=== PATIENT | female | born 1945 | race Hispanic/Latino ===

== ENCOUNTER → 2020-09-04 | Outpatient (CLI) | payer OTHER, MEDICARE ==
[~2020-09-04] MED LIST: ACET-2893 PO; ATEN25TA PO; CEPH500B PO; ESOM40CA PO; MECL-160 PO; SIMV40TA59 PO
== END | disposition home or self-care (01) ==
LOC: RAH 08:36
PROVIDERS: ATTEND Internal Medicine Gastroenterology
DX: K76.0 Fatty (change of) liver, not elsewhere classified (principal); R63.4 Abnormal weight loss; Z90.49 Acquired absence of other specified parts of digestive tract
CPT/HCPCS: 76700

== ENCOUNTER → 2020-09-12 | Outpatient (CLI) | payer OTHER, MEDICARE ==
[2020-09-12 12:40] LABS: BASOPHILS % (AUTO) 0.3 % (0.0-5.0); EOSINOPHILS % (AUTO) 1.6 % (0.0-8.0); HEMATOCRIT 41.1 % (36-48); LYMPHOCYTES % (AUTO) 41.3 % (21.0-51.0); MEAN CORPUSCULAR HEMOGLOBIN 32.9 pg (27.0-33.0); MEAN CORPUSCULAR HGB CONC 33.6 g/dL (32.0-36.0); MEAN CORPUSCULAR VOLUME 97.9 fL (79-99); MONOCYTES % (AUTO) 16.5 % (3.0-13.0); PLATELET COUNT (AUTO) 154 K/uL (130-400); RED CELL DISTRIBUTION WIDTH 12.5 % (11.0-15.5); WHITE BLOOD COUNT (AUTO) 3.1 K/uL (4.8-10.8)
[2020-09-12 12:56] LABS: ALBUMIN 3.3 g/dL (3.5-5.0); BILIRUBIN,TOTAL 0.2 mg/dL (0.2-1.0); CREATININE 0.7 mg/dL (0.5-1.5); POTASSIUM 4.8 mmol/L (3.5-5.1); TOTAL PROTEIN, SERUM 7.2 g/dL (6.0-8.3)
== END | disposition home or self-care (01) ==
LOC: LAB 11:59
PROVIDERS: ATTEND Internal Medicine Gastroenterology
DX: K76.0 Fatty (change of) liver, not elsewhere classified (principal); R63.4 Abnormal weight loss
CPT/HCPCS: 36415; 80053; 85025

== ENCOUNTER 2022-10-24 08:15 | Inpatient (IN) | payer OTHER, MEDICARE ==
[~2022-10-24] VITALS: Ht 157.5 cm; Wt 55.3 kg
[~2022-10-24 08:15] MED LIST changes: -ACET-2893 PO; +ASPI-1005 PO; +ATOR40TA69 PO; -CEPH500B PO; -ESOM40CA PO; +LEVO25CA4 PO; -MECL-160 PO; +OMEP40CA21 PO; -SIMV40TA59 PO
[2022-10-24 08:40] LABS: BASOPHILS % (AUTO) 0.4 % (0.0-5.0); EOSINOPHILS % (AUTO) 2.2 % (0.0-8.0); HEMATOCRIT 40.4 % (36-48); LYMPHOCYTES % (AUTO) 27.1 % (21.0-51.0); MEAN CORPUSCULAR HEMOGLOBIN 32.1 pg (27.0-33.0); MEAN CORPUSCULAR HGB CONC 33.7 g/dL (32.0-36.0); MEAN CORPUSCULAR VOLUME 95.3 fL (79-99); MONOCYTES % (AUTO) 6.8 % (3.0-13.0); NEUTROPHILS % (AUTO) 62.5 % (40.0-77.0); PLATELET COUNT (AUTO) 269 K/uL (130-400); RED BLOOD CELL COUNT(AUTO) 4.24 MIL/uL (4.00-5.50); RED CELL DISTRIBUTION WIDTH 12.9 % (11.0-15.5); WHITE BLOOD COUNT (AUTO) 7.7 K/uL (4.8-10.8)
[2022-10-24 08:53] LABS: ALBUMIN 3.5 g/dL (3.5-5.0); CREATININE 0.8 mg/dL (0.5-1.5); POTASSIUM 3.5 mmol/L (3.5-5.1); TOTAL PROTEIN, SERUM 7.8 g/dL (6.0-8.3)
[2022-10-24 09:00] LABS: APPEARANCE,URINE CLEAR (CLEAR); BILIRUBIN,URINE NEGATIVE (NEGATIVE); COLOR,URINE YELLOW (YELLOW); GLUCOSE, URINE (UA) NEGATIVE (NEGATIVE); KETONES,URINE NEGATIVE (NEGATIVE); LEUKOCYTE ESTERASE ,URINE NEGATIVE Leu/uL (NEGATIVE); NITRATE,URINE NEGATIVE (NEGATIVE); OCCULT BLOOD,URINE NEGATIVE (NEGATIVE); PH,URINE 6.5 (5.0-8.0); PROTEIN,URINE NEGATIVE (NEGATIVE); UROBILINOGEN,URINE 0.2 mg/dL (0.2-1.0)
[2022-10-24] MEDS ORDERED: ACETAMINOPHEN 325 MG TAB PO PRN ×2 (11:30)
[2022-10-24] MEDS ORDERED: ONDANSETRON 4MG INJ IV PRN (11:30)
[2022-10-24] MEDS ORDERED: NITROGLYCERIN 0.4 MG SL TAB SL PRN (11:30)
[2022-10-24] MEDS ORDERED: ASPIRIN 81 MG EC TAB PO ONE (13:00)
[2022-10-24] MEDS ORDERED: CETI10CA5 PO (14:48)
[2022-10-24] MEDS ORDERED: LEVA15HF3 IH (14:48)
[2022-10-24] MEDS ORDERED: PRED20TA3 PO (14:48)
[2022-10-24 16:00] VITALS: BP 103/62
[2022-10-24] MEDS ORDERED: GI COCKTAIL PO ONE ×3 (20:00)
[2022-10-24] MEDS ORDERED: COMPOUND PO MISCELLANEOUS 1 EACH MISC MISC PRN (20:00)
[2022-10-24] MEDS ORDERED: PHARMACY COMMUNICATION MISC ONE (20:00)
[2022-10-24 20:01] VITALS: BP 111/73
[2022-10-24] MEDS: ATORVASTATIN 40 MG TABLET PO SCH (20:22)
[2022-10-24] MEDS: ATENOLOL 25 MG TABLET PO SCH (20:22)
[2022-10-24] MEDS: FAMOTIDINE 20MG VIAL IV SCH (20:22)
[2022-10-25] VITALS: BP 95/60
[2022-10-25 03:55] VITALS: BP 105/63
[2022-10-25 05:03] LABS: BASOPHILS % (AUTO) 0.3 % (0.0-5.0); EOSINOPHILS % (AUTO) 2.8 % (0.0-8.0); HEMATOCRIT 36.4 % (36-48); LYMPHOCYTES % (AUTO) 25.9 % (21.0-51.0); MEAN CORPUSCULAR HEMOGLOBIN 32.4 pg (27.0-33.0); MEAN CORPUSCULAR HGB CONC 34.3 g/dL (32.0-36.0); MEAN CORPUSCULAR VOLUME 94.3 fL (79-99); MONOCYTES % (AUTO) 6.6 % (3.0-13.0); NEUTROPHILS % (AUTO) 63.6 % (40.0-77.0); PLATELET COUNT (AUTO) 232 K/uL (130-400); RED BLOOD CELL COUNT(AUTO) 3.86 MIL/uL (4.00-5.50); RED CELL DISTRIBUTION WIDTH 12.8 % (11.0-15.5)
[2022-10-25 05:35] LABS: ALBUMIN 3.1 g/dL (3.5-5.0); CREATININE 0.7 mg/dL (0.5-1.5); POTASSIUM 4.1 mmol/L (3.5-5.1); TOTAL PROTEIN, SERUM 6.8 g/dL (6.0-8.3)
[2022-10-25 08:00] VITALS: BP 100/66
[2022-10-25] MEDS: FAMOTIDINE 20MG VIAL IV SCH (08:44)
[2022-10-25] MEDS: ASPIRIN 81 MG EC TAB PO SCH (08:45)
[2022-10-25] MEDS: ATENOLOL 25 MG TABLET PO SCH ×2 (08:45→21:07)
[2022-10-25] MEDS: ENOXAPARIN SODIUM 30 MG/0.3 ML SQ SCH (08:46)
[2022-10-25 12:00] VITALS: BP 104/70
[2022-10-25] MEDS ORDERED: IOHEXOL 350 MG/ML 100ML INFUS..BTL IV ONE (15:24)
[2022-10-25] MEDS: SUCRALFATE 1 GM TABLET PO SCH (16:59)
[2022-10-25] MEDS: PANTOPRAZOLE 40 MG/VIAL IVP SCH (16:59)
[2022-10-25 20:00] VITALS: BP 108/65
[2022-10-25] MEDS: ATORVASTATIN 40 MG TABLET PO SCH (21:07)
[2022-10-26] VITALS: BP 95/61
[2022-10-26 04:00] VITALS: BP 95/60
[2022-10-26 05:21] LABS: HEMATOCRIT 38.2 % (36-48); MEAN CORPUSCULAR HEMOGLOBIN 32.3 pg (27.0-33.0); MEAN CORPUSCULAR VOLUME 97.9 fL (79-99); RED BLOOD CELL COUNT(AUTO) 3.9 MIL/uL (4.00-5.50); RED CELL DISTRIBUTION WIDTH 12.9 % (11.0-15.5); WHITE BLOOD COUNT (AUTO) 7.5 K/uL (4.8-10.8)
[2022-10-26 05:40] LABS: POTASSIUM 3.8 mmol/L (3.5-5.1)
[2022-10-26 05:41] LABS: ALBUMIN 3.1 g/dL (3.5-5.0); CREATININE 0.7 mg/dL (0.5-1.5); TOTAL PROTEIN, SERUM 6.7 g/dL (6.0-8.3)
[2022-10-26] MEDS: SUCRALFATE 1 GM TABLET PO SCH (06:36)
[2022-10-26 07:30] VITALS: BP 104/71
[2022-10-26] MEDS: ASPIRIN 81 MG EC TAB PO SCH (08:39)
[2022-10-26] MEDS: PANTOPRAZOLE 40 MG/VIAL IVP SCH (08:39)
[2022-10-26] MEDS: ATENOLOL 25 MG TABLET PO SCH (08:40)
[2022-10-26] MEDS: ENOXAPARIN SODIUM 30 MG/0.3 ML SQ SCH (08:41)
[2022-10-26] MEDS ORDERED: PANT40TA PO (10:09)
[2022-10-26] MEDS ORDERED: SUCR1TAB28 PO (10:09)
[2022-10-26 11:30] VITALS: BP 116/67
== END 2022-10-26 18:00 | disposition home or self-care (01) | DRG 392 ==
LOC: EDH 08:15 → EDHIP 11:13 → OBSVTOIN 11:13 → 4AH 14:00
PROVIDERS: ADMIT Hospitalist; ATTEND Hospitalist
DX: K29.70 Gastritis, unspecified, without bleeding (principal); E78.5 Hyperlipidemia, unspecified; I10 Essential (primary) hypertension; K83.8 Other specified diseases of biliary tract; I25.2 Old myocardial infarction; Z79.82 Long term (current) use of aspirin; Z79.899 Other long term (current) drug therapy; Z82.49 Family history of ischemic heart disease and other diseases of the circulatory system; Z83.3 Family history of diabetes mellitus; Z90.49 Acquired absence of other specified parts of digestive tract; Z90.710 Acquired absence of both cervix and uterus; Z95.0 Presence of cardiac pacemaker
CPT/HCPCS: 36415; 74018; 74174; 76705; 80053; 81003; 82550; 83690; 83874; 84484; 85025; 85027; 93005; C9113; G0378; J1650; J2405; J3490; Q9967

== ENCOUNTER 2022-11-25 10:22 | Emergency (ER) | payer OTHER, MEDICARE ==
[~2022-11-25] VITALS: Ht 147.3 cm; Wt 55.3 kg
[~2022-11-25 10:22] MED LIST changes: +CETI10CA5 PO; +LEVA15HF3 IH; +PANT40TA PO; +PRED20TA3 PO; +SUCR1TAB28 PO
[2022-11-25 10:37] VITALS: BP 136/80
[2022-11-25] MEDS ORDERED: LIDOCAINE HCL 2% VISCOUS 15 ML UDCUP PO ONE (11:00)
[2022-11-25] MEDS ORDERED: MAG/ALUM/SIMETH 30 ML UDCUP PO ONE (11:00)
[2022-11-25] MEDS ORDERED: DICYCLOMINE HCL 10 MG/5 ML ML PO ONE ×2 (11:00→11:24)
[2022-11-25] MEDS ORDERED: MAG/ALUM/SIMETH 30 ML UDCUP ONE (11:24)
[2022-11-25 11:39] LABS: BASOPHILS % (AUTO) 0.3 % (0.0-5.0); EOSINOPHILS % (AUTO) 1.4 % (0.0-8.0); HEMATOCRIT 38.6 % (36-48); LYMPHOCYTES % (AUTO) 13.9 % (21.0-51.0); MEAN CORPUSCULAR HEMOGLOBIN 33.1 pg (27.0-33.0); MEAN CORPUSCULAR HGB CONC 34.2 g/dL (32.0-36.0); MEAN CORPUSCULAR VOLUME 96.7 fL (79-99); NEUTROPHILS % (AUTO) 77.6 % (40.0-77.0); PLATELET COUNT (AUTO) 207 K/uL (130-400); RED BLOOD CELL COUNT(AUTO) 3.99 MIL/uL (4.00-5.50); RED CELL DISTRIBUTION WIDTH 13.3 % (11.0-15.5); WHITE BLOOD COUNT (AUTO) 9.3 K/uL (4.8-10.8)
[2022-11-25 12:00] LABS: APPEARANCE,URINE CLEAR (CLEAR); BILIRUBIN,URINE NEGATIVE (NEGATIVE); COLOR,URINE COLORLESS (YELLOW); GLUCOSE, URINE (UA) NEGATIVE (NEGATIVE); KETONES,URINE NEGATIVE (NEGATIVE); LEUKOCYTE ESTERASE ,URINE NEGATIVE Leu/uL (NEGATIVE); NITRATE,URINE NEGATIVE (NEGATIVE); OCCULT BLOOD,URINE NEGATIVE (NEGATIVE); PROTEIN,URINE NEGATIVE (NEGATIVE); UROBILINOGEN,URINE 0.2 mg/dL (0.2-1.0)
[2022-11-25 12:34] LABS: CREATININE 0.7 mg/dL (0.5-1.5); POTASSIUM 3.8 mmol/L (3.5-5.1)
[2022-11-25 12:38] LABS: ALBUMIN 3.5 g/dL (3.5-5.0); TOTAL PROTEIN, SERUM 6.8 g/dL (6.0-8.3)
[2022-11-25] MEDS ORDERED: GICOCKTAIL PO (14:07)
== END 2022-11-25 14:19 | disposition home or self-care (01) ==
LOC: EDH 10:22
DX: K29.70 Gastritis, unspecified, without bleeding (principal); I10 Essential (primary) hypertension; Z79.899 Other long term (current) drug therapy; Z79.82 Long term (current) use of aspirin; Z90.49 Acquired absence of other specified parts of digestive tract; Z90.710 Acquired absence of both cervix and uterus
CPT/HCPCS: 36415; 80053; 81003; 83690; 85025; 93005

== ENCOUNTER 2023-05-26 09:39 | Inpatient (IN) | payer OTHER, MEDICARE ==
[~2023-05-26] VITALS: Ht 149.9 cm; Wt 54.0 kg
[~2023-05-26 09:39] MED LIST changes: +GICOCKTAIL PO
[2023-05-26 10:07] LABS: BASOPHILS # (AUTO) 0.02 K/uL (0.00-0.20); BASOPHILS % (AUTO) 0.2 % (0.0-5.0); EOSINOPHILS # (AUTO) 0.06 K/uL (0.00-0.70); EOSINOPHILS % (AUTO) 0.5 % (0.0-8.0); HEMATOCRIT 39.9 % (36-48); IMMATURE GRANULOCYTE ABSOLUTE 0.04 K/uL (0-1); LYMPHOCYTES # (AUTO) 1.3 K/uL (1.0-4.8); LYMPHOCYTES % (AUTO) 11.5 % (21.0-51.0); MEAN CORPUSCULAR HEMOGLOBIN 32.2 pg (27.0-33.0); MEAN CORPUSCULAR HGB CONC 33.1 g/dL (32.0-36.0); MEAN CORPUSCULAR VOLUME 97.3 fL (79-99); MONOCYTES # (AUTO) 0.5 K/uL (0.1-1.0); MONOCYTES % (AUTO) 4.4 % (3.0-13.0); NEUTROPHILS # (AUTO) 9.3 K/uL (1.8-7.7); PLATELET COUNT (AUTO) 164 K/uL (130-400); RED CELL DISTRIBUTION WIDTH 12.4 % (11.0-15.5); WHITE BLOOD COUNT (AUTO) 11.1 K/uL (4.8-10.8)
[2023-05-26 10:16] LABS: CREATININE 0.7 mg/dL (0.5-1.5); POTASSIUM 3.5 mmol/L (3.5-5.1)
[2023-05-26 10:25] LABS: ALBUMIN 3.8 g/dL (3.5-5.0); BILIRUBIN,TOTAL 0.3 mg/dL (0.2-1.0); TOTAL PROTEIN, SERUM 7.4 g/dL (6.0-8.3)
[2023-05-26 10:41] LABS: APPEARANCE,URINE CLEAR (CLEAR); BILIRUBIN,URINE NEGATIVE (NEGATIVE); COLOR,URINE LIGHT-YELLOW (YELLOW); GLUCOSE, URINE (UA) NEGATIVE (NEGATIVE); KETONES,URINE NEGATIVE (NEGATIVE); LEUKOCYTE ESTERASE ,URINE NEGATIVE Leu/uL (NEGATIVE); NITRATE,URINE NEGATIVE (NEGATIVE); OCCULT BLOOD,URINE NEGATIVE (NEGATIVE); PROTEIN,URINE NEGATIVE (NEGATIVE); UROBILINOGEN,URINE 0.2 mg/dL (0.2-1.0)
[2023-05-26 10:42] LABS: ADD UA MICROSCOPIC NO
[2023-05-26] MEDS ORDERED: METOCLOPRAMIDE 10 MG/2 ML VIAL IVP ONE (11:00)
[2023-05-26] MEDS ORDERED: LACTATED RINGERS 1000ML 1,000 ML IV ONE (11:00)
[2023-05-26] MEDS ORDERED: FAMOTIDINE 20MG VIAL IV ONE (11:00)
[2023-05-26] MEDS: MORPHINE 2 MG SYG IVP ONE ×2 (11:09→11:16)
[2023-05-26] MEDS ORDERED: IOHEXOL-350 75 ML VIAL IV ONE (12:08)
[2023-05-26] MEDS ORDERED: ASPIRIN 325MG TAB PO ONE (18:30)
[2023-05-26] MEDS ORDERED: ACETAMINOPHEN 325 MG TAB PO PRN ×2 (19:00)
[2023-05-26] MEDS ORDERED: MECLIZINE HCL 25 MG TABLET PO PRN (19:00)
[2023-05-26] MEDS ORDERED: LACTULOSE 20 GM/30 ML UDCUP PO PRN (19:00)
[2023-05-26] MEDS ORDERED: ONDANSETRON 4MG INJ IV PRN (19:00)
[2023-05-26] MEDS ORDERED: FAMOTIDINE 20MG TAB PO SCH (21:00)
[2023-05-26] MEDS: METOPROLOL TARTRATE 25 MG TAB PO SCH (22:15)
[2023-05-26 22:55] LABS: HEMOGLOBIN A1C 5.9 % (4.0-6.0)
[2023-05-26 23:11] LABS: CHOLESTEROL 119 mg/dL (<200); HDL CHOLESTEROL 48 mg/dL (35-85); LDL DIRECT 58 mg/dL (0-99); TRIGLYCERIDES 81 mg/dL (30-200)
[2023-05-27] MEDS: PANTOPRAZOLE 40 MG TAB DR PO SCH (09:18)
[2023-05-27] MEDS: METOPROLOL TARTRATE 25 MG TAB PO SCH ×2 (09:18→20:47)
[2023-05-27] MEDS ORDERED: CLOPIDOGREL 75MG TAB PO ONE (12:00)
[2023-05-27] MEDS: NITROGLYCERIN 1GM OINT 1 INCH/1GM TD SCH ×2 (13:29→20:00)
[2023-05-27] MEDS ORDERED: ATEN50TA PO (14:36)
[2023-05-27] MEDS: ENOXAPARIN SODIUM 60 MG/0.6 ML SQ SCH (20:39)
[2023-05-27] MEDS: ATORVASTATIN 40 MG TABLET PO SCH (20:39)
[2023-05-28] VITALS (9 sets, daily range): BP systolic 103–106; BP diastolic 63–76; PULSE 85–96; RESP 16–18; O2SAT 95–99
[2023-05-28] MEDS: NITROGLYCERIN 1GM OINT 1 INCH/1GM TD SCH ×3 (03:25→21:58)
[2023-05-28 06:02] LABS: BASOPHILS # (AUTO) 0.02 K/uL (0.00-0.20); BASOPHILS % (AUTO) 0.3 % (0.0-5.0); EOSINOPHILS # (AUTO) 0.15 K/uL (0.00-0.70); EOSINOPHILS % (AUTO) 2.2 % (0.0-8.0); HEMATOCRIT 36.8 % (36-48); IMMATURE GRANULOCYTE ABSOLUTE 0.04 K/uL (0-1); LYMPHOCYTES # (AUTO) 2.1 K/uL (1.0-4.8); LYMPHOCYTES % (AUTO) 31.5 % (21.0-51.0); MEAN CORPUSCULAR HEMOGLOBIN 32.4 pg (27.0-33.0); MEAN CORPUSCULAR HGB CONC 32.9 g/dL (32.0-36.0); MEAN CORPUSCULAR VOLUME 98.7 fL (79-99); MONOCYTES # (AUTO) 0.4 K/uL (0.1-1.0); MONOCYTES % (AUTO) 6.4 % (3.0-13.0); NEUTROPHILS # (AUTO) 3.9 K/uL (1.8-7.7); PLATELET COUNT (AUTO) 165 K/uL (130-400); RED BLOOD CELL COUNT(AUTO) 3.73 MIL/uL (4.00-5.50); RED CELL DISTRIBUTION WIDTH 12.4 % (11.0-15.5); WHITE BLOOD COUNT (AUTO) 6.7 K/uL (4.8-10.8)
[2023-05-28 06:33] LABS: CREATININE 0.7 mg/dL (0.5-1.5); MAGNESIUM 2.1 mg/dL (1.80-2.40); PHOSPHORUS 3.4 mg/dL (2.5-4.9); POTASSIUM 3.6 mmol/L (3.5-5.1)
[2023-05-28] MEDS ORDERED: LEVOTHYROXINE 25 MCG TABLET PO SCH (07:30)
[2023-05-28] MEDS: METOPROLOL TARTRATE 25 MG TAB PO SCH ×2 (09:09→21:58)
[2023-05-28] MEDS: PANTOPRAZOLE 40 MG TAB DR PO SCH (09:09)
[2023-05-28] MEDS: ASPIRIN 81MG CHEW TAB PO SCH (09:09)
[2023-05-28] MEDS: ENOXAPARIN SODIUM 60 MG/0.6 ML SQ SCH ×2 (09:09→21:58)
[2023-05-28] MEDS: CLOPIDOGREL 75MG TAB PO SCH (09:09)
[2023-05-28] MEDS: ATORVASTATIN 40 MG TABLET PO SCH (21:58)
[2023-05-29] VITALS (9 sets, daily range): BP systolic 88–120; BP diastolic 49–75; PULSE 80–95; RESP 16–18; O2SAT 96–100
[2023-05-29] MEDS: NITROGLYCERIN 1GM OINT 1 INCH/1GM TD SCH ×2 (04:00→12:00)
[2023-05-29] MEDS: LEVOTHYROXINE 25 MCG TABLET PO SCH (06:23)
[2023-05-29] MEDS: METOPROLOL TARTRATE 25 MG TAB PO SCH (08:42)
[2023-05-29] MEDS: PANTOPRAZOLE 40 MG TAB DR PO SCH (08:42)
[2023-05-29] MEDS: CLOPIDOGREL 75MG TAB PO SCH (08:42)
[2023-05-29] MEDS: ASPIRIN 81MG CHEW TAB PO SCH (08:42)
[2023-05-29] MEDS: ENOXAPARIN SODIUM 60 MG/0.6 ML SQ SCH ×2 (08:43→20:23)
[2023-05-29] MEDS: ATORVASTATIN 40 MG TABLET PO SCH (20:22)
[2023-05-30 03:50] VITALS: BP 106/66; PULSE 80; RESP 16
[2023-05-30] MEDS: LEVOTHYROXINE 25 MCG TABLET PO SCH (06:11)
[2023-05-30 08:00] VITALS: BP 119/72; PULSE 85; RESP 19; O2SAT 100
[2023-05-30] MEDS ORDERED: ATENOLOL 25 MG TABLET PO SCH (09:00)
[2023-05-30] MEDS ORDERED: METOPROLOL SUCCINATE 50 MG TAB.SR.24H PO SCH (09:00)
[2023-05-30] MEDS: PANTOPRAZOLE 40 MG TAB DR PO SCH (09:41)
[2023-05-30] MEDS: ASPIRIN 81MG CHEW TAB PO SCH (09:42)
[2023-05-30] MEDS: ENOXAPARIN SODIUM 60 MG/0.6 ML SQ SCH (09:44)
[2023-05-30 12:10] VITALS: BP 110/62; PULSE 80; RESP 18
== END 2023-05-30 17:30 | disposition home or self-care (01) | DRG 282 ==
LOC: EDH 09:39 → EDHIP 18:47 → 3DH 05-27 23:49
PROVIDERS: ADMIT Hospitalist; ATTEND Hospitalist
DX: I21.4 Non-ST elevation (NSTEMI) myocardial infarction (principal); I25.10 Atherosclerotic heart disease of native coronary artery without angina pectoris; K21.9 Gastro-esophageal reflux disease without esophagitis; E03.9 Hypothyroidism, unspecified; I10 Essential (primary) hypertension; E78.00 Pure hypercholesterolemia, unspecified; R55 Syncope and collapse; Z95.0 Presence of cardiac pacemaker; I25.2 Old myocardial infarction; Z90.710 Acquired absence of both cervix and uterus; Z79.899 Other long term (current) drug therapy; K44.9 Diaphragmatic hernia without obstruction or gangrene; K57.90 Diverticulosis of intestine, part unspecified, without perforation or abscess without bleeding
CPT/HCPCS: 36415; 71045; 74178; 80048; 80053; 80061; 81003; 82550; 83036; 83690; 83735; 83874; 84100; 84484; 85025; 93005; 93306; G0378; J1650; J2270; J2765; J3490; Q9967

== ENCOUNTER → 2023-10-07 | Outpatient (CLI) | payer OTHER, MEDICARE ==
[~2023-10-07] MED LIST changes: -ATEN25TA PO; +ATEN50TA PO; -LEVA15HF3 IH; -OMEP40CA21 PO; -PRED20TA3 PO; -SUCR1TAB28 PO
[2023-10-07 12:39] LABS: ALBUMIN 3.6 g/dL (3.5-5.0); BILIRUBIN,TOTAL 0.3 mg/dL (0.2-1.0); CREATININE 0.7 mg/dL (0.5-1.5); TOTAL PROTEIN, SERUM 7.4 g/dL (6.0-8.3)
== END | disposition home or self-care (01) ==
LOC: LAB 09:00
PROVIDERS: ATTEND Internal Medicine Cardiovascular Disease
DX: E78.2 Mixed hyperlipidemia (principal)
CPT/HCPCS: 36415; 80053; 80061

== ENCOUNTER → 2024-07-06 | Outpatient (CLI) | payer OTHER, MEDICARE | END | disposition home or self-care (01) | LOC: RAH 09:42 | PROVIDERS: ATTEND Family Medicine | DX: Z12.31 Encounter for screening mammogram for malignant neoplasm of breast (principal); R92.333 Mammographic heterogeneous density, bilateral breasts; R92.1 Mammographic calcification found on diagnostic imaging of breast | CPT/HCPCS: 77067 ==

== ENCOUNTER → 2024-10-01 | Outpatient (CLI) | payer OTHER, MEDICARE ==
--- NOTE | 2024-10-01 13:58 | HMCIMG ---
SHOULDER COMP 2+VWS RT REASON: SHHOULDER PAIN TECHNIQUE: 2 views were obtained. FINDINGS: There is no evidence of fracture or dislocation. There is no joint effusion. The soft tissues appear unremarkable. There is no evidence of a radiopaque foreign body. IMPRESSION: No acute findings.
--- NOTE | 2024-10-01 13:58 | HMCIMG ---
THORACIC SPINE 2VWS REASON: LOW BACK PAIN COMPARISON: None. TECHNIQUE: 2 images were obtained. FINDINGS: There is moderate endplate compression deformity of the T12 vertebral body. Remaining vertebral bodies are unremarkable. Interspace heights are preserved and alignment is normal. IMPRESSION: 1. Moderate superior endplate compression deformity of T12, otherwise normal exam.
--- NOTE | 2024-10-01 13:59 | HMCIMG ---
EXAM: LUMBAR SPINE 2-3VWS REASON: LOW BACK PAIN. COMPARISON: None. TECHNIQUE: 3 views of the lumbar spine were obtained. FINDINGS: There is 24 degree dextro scoliosis of the upper lumbar spine. This is epicentered at L1. There is more normal alignment on the lateral view. L1-2 interspace is markedly narrowed. The superior endplate compression deformity of T12. There are no compression fractures and the lumbar spine. There are mild degenerative changes in the facets. Soft tissues appear unremarkable. IMPRESSION: 1. 24 degree dextroscoliosis of the upper lumbar spine epicentered at L1. 2. Moderate degenerative change. 3. Compression deformity superior plate T12, there are no lumbar compression fractures.
== END | disposition home or self-care (01) ==
LOC: RAH 12:11
PROVIDERS: ATTEND Family Medicine
DX: M43.8X4 Other specified deforming dorsopathies, thoracic region (principal); M47.816 Spondylosis without myelopathy or radiculopathy, lumbar region; M41.86 Other forms of scoliosis, lumbar region; M25.511 Pain in right shoulder
CPT/HCPCS: 72070; 72100; 73030

== ENCOUNTER → 2024-10-25 | Outpatient (CLI) | payer OTHER, MEDICARE ==
[2024-10-25 13:15] LABS: ALBUMIN 3.6 g/dL (3.5-5.0); BILIRUBIN,TOTAL 0.4 mg/dL (0.2-1.0); CREATININE 0.6 mg/dL (0.5-1.0); TOTAL PROTEIN, SERUM 7.3 g/dL (6.0-8.3)
== END | disposition home or self-care (01) ==
LOC: LAB 09:32
PROVIDERS: ATTEND Internal Medicine Cardiovascular Disease
DX: I10 Essential (primary) hypertension (principal); E78.5 Hyperlipidemia, unspecified
CPT/HCPCS: 36415; 80053; 80061; 83735; 83880

== ENCOUNTER → 2024-12-21 | Outpatient (CLI) | payer OTHER, MEDICARE ==
[~2024-12-21] MED LIST changes: -LEVO25CA4 PO; +LEVO25CA5 PO
--- NOTE | 2024-12-21 16:13 | HMCIMG ---
LUMBAR SPINE 2-3VWS HISTORY: Radiculopathy COMPARISON: None FINDINGS: 3 images of the lumbar spine were obtained. There is dextroscoliosis of lumbar spine. Postcholecystectomy changes are seen. Large amount of fecal material is seen in the colon. There are degenerative changes with osteophyte formation. This space narrowings are seen at L1-2 and L2-3 levels. There is straightening of normal lordotic curvature which may be related to muscle spasm or positioning. No loss of vertebral height is seen. No fracture or dislocation is seen. Degenerative changes are seen. IMPRESSION: 1. No fracture is seen. DJD with spondylosis.
--- NOTE | 2024-12-21 16:17 | HMCIMG ---
THORACIC SPINE 2VWS HISTORY: Radiculopathy COMPARISON: None FINDINGS: 2 images of thoracic spine were obtained. Pacemaker is seen entering from the left. There are degenerative changes with spondylosis. There is straightening of normal lordotic curvature which may be related to muscle spasm or positioning. No loss of vertebral height is seen. No fracture or dislocation is seen. Degenerative changes are seen. IMPRESSION: 1. No fracture is seen. DJD with spondylosis.
--- NOTE | 2024-12-21 16:24 | HMCIMG ---
CERV SPINE 2-3VWS HISTORY: Radiculopathy COMPARISON: None FINDINGS: 3 images DJD of the cervical spine spondylosis. Of cervical spine were obtained. There are degenerative changes with cervical spine spondylosis. Disc space narrowings are seen at C3-4 through C6-7 levels. There is straightening of normal lordotic curvature which may be related to muscle spasm or positioning. No loss of vertebral height is seen. No fracture or dislocation is seen. Degenerative changes are seen. IMPRESSION: 1. No fracture is seen. DJD of cervical spine spondylosis.
== END | disposition home or self-care (01) ==
LOC: RAH 15:06
PROVIDERS: ATTEND Internal Medicine
DX: M47.22 Other spondylosis with radiculopathy, cervical region (principal); M47.24 Other spondylosis with radiculopathy, thoracic region; M47.26 Other spondylosis with radiculopathy, lumbar region; M43.8X2 Other specified deforming dorsopathies, cervical region; M43.8X4 Other specified deforming dorsopathies, thoracic region; M43.8X6 Other specified deforming dorsopathies, lumbar region; M41.86 Other forms of scoliosis, lumbar region; M48.061 Spinal stenosis, lumbar region without neurogenic claudication; M48.02 Spinal stenosis, cervical region; M25.78 Osteophyte, vertebrae; R10.13 Epigastric pain; Z90.49 Acquired absence of other specified parts of digestive tract
CPT/HCPCS: 72040; 72070; 72100

== ENCOUNTER → 2025-03-14 | Outpatient (CLI) | payer OTHER, MEDICARE ==
--- NOTE | 2025-03-15 04:35 | HMCIMG ---
EXAM: CR Thoracic Spine, 2 views. CLINICAL HISTORY: Thoracic back pain. COMPARISON: None provided. FINDINGS: Mild to moderate dextroscoliosis of the thoracolumbar spine. Mild osteopenia. Mild to moderate spondylosis and degenerative disc space narrowing at multiple levels. Normal vertebral body heights. No acute fracture. Soft tissues are within normal limits. Surgical clips in the right upper quadrant of the abdomen. Partially visualized cardiac pacemaker leads. IMPRESSION: Mild to moderate dextroscoliosis of the thoracolumbar spine. Mild osteopenia. Mild to moderate spondylosis and degenerative disc space narrowing at multiple levels. /[place]
== END | disposition home or self-care (01) ==
LOC: RAH 10:15
PROVIDERS: ATTEND Internal Medicine
DX: M47.814 Spondylosis without myelopathy or radiculopathy, thoracic region (principal); M48.04 Spinal stenosis, thoracic region; M41.85 Other forms of scoliosis, thoracolumbar region; M85.88 Other specified disorders of bone density and structure, other site; M54.6 Pain in thoracic spine
CPT/HCPCS: 72070